=== PATIENT | female | born 2005 | race Caucasian/White ===

== ENCOUNTER → 2024-11-17 11:03 | Outpatient (CLI) | payer BC, SELFPAY ==
[2024-11-17 19:17] LABS: Add Manual Diff / Slide Review NO; Hematocrit 34.0 % (36-46); Hemoglobin 11.5 g/dL (12.0-16.0); Lymphocytes Absolute Auto 1300 /uL (1100-4500); Mean Corpuscular HGB Conc 33.9 % (30-36); Mean Corpuscular Hemoglobin 27.6 PG (26-34); Mean Corpuscular Volume 81.5 fL (80-100); Platelet Count 119 X10^3/uL (150-400)
[2024-11-17 19:23] LABS: Alanine Aminotransferase 28 IU/L (<35); Albumin 4.3 g/dL (3.5-5.0); Albumin Globulin Ratio 1.4 (1.0-2.8); Alkaline Phosphatase 41 U/L (38-126); Blood Urea Nitrogen 9 mg/dL (7-17); Calcium 9.1 mg/dL (8.4-10.2); Carbon Dioxide 24 mmol/L (22-32); Chloride 104 mmol/L (98-107); Estimated Glomerular Filt Rate > 60 mL/min (>60); Globulin 3.1 g/dL (1.7-4.1); Glucose 91 mg/dL (70-99); HEMOLYSIS < 15 (0-50); Potassium 3.9 mmol/L (3.4-5.1); Sodium 137 mmol/L (137-145); Total Protein 7.4 g/dL (6.3-8.2)
[2024-11-17 19:30] LABS: HEMOLYSIS < 15 (0-50); Iron 63 ug/dL (37-170)
[2024-11-17 19:41] LABS: Percent Iron Saturation 15 % (15-50); Total Iron Binding Capacity 430 ug/dL (265-497); Transferrin 359 mg/dL (206-381)
[2024-11-17 19:50] LABS: Free T4, Direct Thyroxine 1.08 ng/dL (0.78-2.19)
[2024-11-17 20:04] LABS: Thyroid Stimulating Hormone 3.78 uIU/mL (0.47-4.68)
== END ==
PROVIDERS: Visit Provider Pediatrics
DX: R50.9 Fever, unspecified (principal); R42 Dizziness and giddiness; R51.9 Headache, unspecified
CPT/HCPCS: 80053; 83540; 83550; 84439; 84443; 85025; 85651; 86318